=== PATIENT | female | born 1990 | race Caucasian/White ===

== ENCOUNTER → 2024-07-05 10:46 | Outpatient (CLI) | payer OTHER, SELFPAY ==
--- NOTE | 2024-07-05 10:52 | DI.MRI.S_ITS ---
PROCEDURE: MR CERVICAL SPINE WO CON INDICATIONS: Radiculopathy, cervical region TECHNIQUE: Noncontrast sagittal T1 spin echo and T2 fast spin echo, sagittal STIR, foraminal oblique sagittal T2 fast spin echo, and axial gradient echo or T2 fast spin echo through the cervical spine. COMPARISON: None. FINDINGS: Image quality: Excellent. Alignment and Curvature: Loss of normal cervical lordosis. Bone Marrow: Marrow demonstrates normal overall signal. Spinal Cord: Visualized spinal cord has normal size and signal. No cerebellar tonsillar herniation. Paraspinous Soft Tissues: No paravertebral masses. Prevertebral soft tissues are normal in thickness. C2-C3: Normal appearance. C3-C4: Mild disc desiccation and diffuse disc bulge. Mild facet and uncovertebral hypertrophy. Mild canal stenosis. Mild bilateral foraminal stenosis. C4-C5: Normal appearance. C5-C6: Normal appearance. C6-C7: Normal appearance. C7-T1: Normal appearance. IMPRESSION: 1. Mild upper cervical disc disease, causing mild canal stenosis. No foraminal stenosis. No neural impingement. Dictated by: Kristi Mata M.D. on 07/05/2024 at 12:29 Approved by: Kristi Mata M.D. on 07/05/2024 at 12:32
== END ==
PROVIDERS: Referring Provider Chiropractor; Visit Provider Chiropractor
DX: M50.11 Cervical disc disorder with radiculopathy, high cervical region (principal); M48.02 Spinal stenosis, cervical region
CPT/HCPCS: 72141